=== PATIENT | female | born 2005 | race Caucasian/White ===

== ENCOUNTER 2025-05-17 14:20 | Outpatient (AMB) | payer OTHER, SELFPAY ==
--- NOTE | 2025-05-17 14:28 | MHC.OFFVIS ---
Vital Signs 05/17/25 14:34 Height 5 ft 8 in Weight 155 lb BMI 23.6 BP 107/75 Blood Pressure Location Lt brachial Position Sitting Pulse 88 Intake Visit Reasons: diarrhea abd pain Intake Note: Patient new consult for diarrhea and abdominal pain. Patientndenies any GI issues. Patient started gluten free. Accompanied by: Mother Allergies clindamycin Allergy (Intermediate, Verified 05/17/25 15:05) Abdominal Pain Medication List - Last Reconciled 05/18/25 by Sindy Cobos CNP etonogestrel-ethinyl estradiol 0.12-0.015 mg/24 hr (NuvaRing) 1 vag ring vaginal Q4W sertraline 50 mg PO DAILY HPI HPI diarrhea abd pain: Details: Patient is a 19-year-old female with PMH of anxiety, RASTA. Referred by PCP for further evaluation of blood in stools Patient is accompanied by her mother Pt reports initial onset of diarrhea with blood and worsening abdominal pain in late December while in training in [place], with symptoms lasting intermittently one month. States abdominal pain was continuous with intermittent bouts of bloating and painful episodes. Locates most symptoms to the lower abdomen. Pt initially attributed bleeding to menses, but after several days realized it was rectal in origin and presented to ER in [place]. CT imaging performed at that time was unremarkable, and concern for contaminated water was excluded. Pt was medically discharged and returned home, where symptoms persisted, prompting a second ER visit on 01/22/2025 for abdominal pain and rectal bleeding. Primary care follow-up on 01/24/2025 noted ongoing pain, bloating, and weight loss, which pt attributes to training intensity and dietary changes.. Celiac disease is present in 2nd degree relatives on both sides, prompting pt to trial a gluten-free diet starting the first week of January. Reports significant improvement in abdominal pain, bloating, and bowel regularity (now 1?2 [id number] BMs/day) with strict gluten avoidance, but notes recurrence of diarrhea and abdominal pain with gluten exposure (most notably in early April and after dietary lapses while traveling in January). Bloody diarrhea resolved after return to gluten-free diet and has not recurred since late January. Associated sx included transient rash on feet and back of legs after initial episode, lasting several weeks and unresponsive to antifungal tx, described as likely autoimmune in nature by podiatry. No hx of N/V, constipation, dysphagia, or chest pain. No previous dx of celiac though pt?s family members have required EGD bx for dx due to non-diagnostic labs. Denies personal or family hx of Crohn?s/UC, ca, or prior sedation complications. Most recent labs (12/2024) were WNL for anemia, LFTs, renal function; H. pylori status indeterminate (no verbal result; stool sample may not have processed). Patient denies: fever/chills, n/v, appetite changes, pyrosis, regurgitation,dysphasia. Social hx: -ETOH use 1?2 glasses wine/month. -denies recreational drug use -non-smoker - family hx as below -denies personal hx of CA - denies significant cardiopulmonary history -no prior sedation history. PFSH Medical History (Updated 05/18/25 @ 20:50 by Sindy Cobos CNP) Rash Bloating Blood in stool Surgical History (Updated 05/17/25 @ 14:40 by Miriam Mcdonald) Hx of wisdom tooth extraction Social History Household Members: Family Alcohol intake: never Patient Tobacco Use Status: Never used Tobacco Use of substances other than those prescribed or required for medical reasons: No Review of Systems Const Reports as per HPI ENT Reports as per HPI Card Reports as per HPI Resp Reports as per HPI GI Reports as per HPI Reports as per HPI Physical Exam Vital Signs: Last Vital Signs Pulse 88 05/17/25 14:34 BP 107/75 05/17/25 14:34 BMI result Body Mass Index 23.6 Const General: healthy appearing, no acute distress and well developed Nutritional Appearance: average body habitus Orientation/consciousness: patient oriented x3 HEENT Head: Yes normal to inspection, Yes normocephalic and Yes atraumatic Face and sinus: Yes normal facial exam Eyes General: appearance normal, both eyes and all related structures Neck Neck: Yes normal visual inspection Resp Effort & Inspection: normal respiratory effort, able to speak in complete sentences, no tracheal deviation and symmetric chest movement Cardio Bruits: no abdominal aortic bruits GI Inspection: Yes normal to inspection and No distended Palpation (GI): No Abdominal aortic bruit present, Soft to palpation, not firm, nontender and No hepatosplenomegaly present Auscultation: normal bowel sounds Neuro General: patient oriented x3 Gait exam (Neuro): Normal gait present Psych Appearance: grossly normal Mental Status: mental status grossly normal Speech and movement: Normal speech and movement present Affect: normal affect Attitude: cooperative Thought process: Normal thought process present Thought content: Normal thought content present Insight: Good insight present (Psych) Judgement: Good judgement present (Psych) Assessment & Plan Assessment & Plan (1) Blood in stool: Code(s): K92.1 - Melena Category: Medical Plan: Persistent diarrhea and hematochezia with gluten exposure; sx resolution with gluten-free diet, but blood in stool is atypical for celiac + negative serology prior to initiation of gluten free diet; requires exclusion of alternative inflammatory or neoplastic etiologies. Additional Testing: - Repeat comprehensive stool studies ( fecal calprotectin, H. pylori antigen). - Schedule and complete colonoscopy and EGD (both for histopathologic dx?IBD, celiac; obtain bx as indicated). - Review prior outside stool studies, obtain labs where possible. Medication Management: - No new meds initiated; omeprazole rx provided previously, not taken; continue as indicated for GI protection if upper sx develop. - Continue NuvaRing. Lifestyle Recommendations: - Continue gluten-free diet, as symptoms have remitted on this regimen. May need to consider reintroduction near endoscopy date. - Encourage regular hydration. - Adequate fiber intake for bowel regularity if tolerated. Follow-Up: - Will follow up after endoscopic procedures and stool studies; continue portal communication for results and symptom change. - Reassess once pathology/lab findings return. (2) Rash: Code(s): R21 - Rash and other nonspecific skin eruption Category: Medical Plan: Rash concurrent with GI sx, unresponsive to antifungal tx, presumed autoimmune etiology; possibly dermatitis herpetiformis or other gluten-related/vasculitic skin lesions, typically seen in celiac. Additional Testing: - None indicated at this time; rash has resolved. - Consider bx only if rash recurs. Medication Management: - None indicated. Lifestyle Recommendations: - Continue to avoid gluten. - Monitor for rash recurrence, start photo documentation if reappears. Follow-Up: - Routine, as above. Plan Follow-up after endoscopy or sooner as needed Time: I spent a total of 30 minutes on the date of encounter which includes: Preparing to see the patient (reviewed previous documentation, test results and medical history) Performing a medically appropriate exam and/or evaluation Ordering medications, tests, and procedures Documenting clinical information in the health record Orders: Orders Calprotectin, Fecal 05/17/25 K92.1 - Melena H pylori Ag Stool 05/17/25 K92.1 - Melena, R14.0 - Abdominal distension (gaseous) C Reactive Protein 05/17/25 K92.1 - Melena Referrals GI Procedure Notification K92.1 - Melena, R14.0 - Abdominal distension (gaseous) Coding Level of Care Code New Pt New Pt Level 3 (35709) Patient Type New Diagnoses Blood in stool K92.1 Rash R21
[2025-05-17 14:34] VITALS: BP 107/75; PULSE 88; BMI 23.6
--- OUTSIDE RECORDS SUMMARY | 2025-05-18 02:49 | XMS_ITS | Clinical Summary ---
Author Organization [facility] Address [address] [place] [id number] Phone Care Team Providers Care Health It Specialist Name Role Phone Unavailable Primary Care Provider Unavailabl e Allergies No known active allergies Medications triamcinolone 0.025 % ointmentIndicat ions:Periocular dermatitis Apply to eczema around eye bid up to 5 days. Not use more than 10 days per month 80 g 5 2 Active Additional Information Patient not taking.Reported on 05/05/2022 cyproheptadine 4 MG tabletIndicatio ns:Concussion without loss of consciousness, subsequent encounter Take 1/2 tablet daily around 9 pm as directed til 2022 30 tablet 2 Active Additional Information Patient not taking.Reported on 12/29/2022 AMITRIPTYLINE EX 3 Active Active Problems Problem Noted Date Diagnosed Date Concussion with no loss of consciousness 022 Assessment & Plan (05/30/2022 12:47 PM EST): Concussion Ongoing Symptoms Still symptomatic from concussion after a few days of improvement. Schoolwork and lights at school trigger Note for school, sunglasses Patient Instructions 1/2 days school this week, then full days Sunglasses daily for 7-10 days in school--note Cyproheptadine 2 mg around 9 pm for 30 days For 1 weeks take 2 Aleve (440mg) in AM with food and water Stay well hydrated Good sleep Exercise , 20 ' daily hiking, stationary bike--assuming no significant sx. Hopefully, RTP starting middle next week. [employer] form completed Discussed in detail Discussed Second Impact Syndrome and importance of following mental and physical rest recommendations. Rest, good hydration, good sleep. Discussed importance of honesty reporting if ANY new symptoms develop and to call us as needed/or let net trainer know. Assessment & Plan (05/14/2022 10:33 AM EST): Concussion Ongoing Symptoms Still symptomatic from concussion. [employer] form completed and 1/2 days in school until 05/26---to send me via completed [employer] form via [employer] on 05/26 Possible will start RTP with school net trainer that week--time will tell. Continue 1/2 tablet cyproheptadine in PM to aid sleep and reduce PICKENS Discussed in detail Discussed Second Impact Syndrome and importance of following mental and physical rest recommendations. Rest, good hydration, good sleep. Discussed importance of honesty reporting if ANY new symptoms develop and to call us as needed/or let net trainer know. Assessment & Plan (05/05/2022 2:37 PM EST): Patient Instructions Concussion Ongoing Symptoms Still symptomatic from concussion. [employer]IANA form completed and altered school schedule until recheck in ~1 week. Discussed in detail Discussed Second Impact Syndrome and importance of following mental and physical rest recommendations. Rest, good hydration, good sleep. Discussed importance of honesty reporting if ANY new symptoms develop and to call us as needed/or let net trainer know. Assessment & Plan (04/28/2022 12:44 PM EDT): Concussion Ongoing Symptoms Still symptomatic from concussion. [employer]IA[employer] form completed and no school x 3 days then 1/2 days x 2 --- recheck in 1 week. Discussed in detail Discussed Second Impact Syndrome and importance of following mental and physical rest recommendations. Rest, good hydration, good sleep. Adolescent idiopathic scoliosis of thoracolumbar region 12/17/2021 Overview (12/17/2021): Diagnosed 07/2019. 32 degree curve. Referred to [facility]. No intervention done because she was post-menarche. Assessment & Plan (12/18/2021 8:32 PM EDT): Discharged from [facility]. She never had any intervention. Iron deficiency anemia arabella andrew to inadequate dietary iron intake 11/22/2021 Overview (12/18/2021): Hgb 11.3 on 11/22/2021. Iron rich diet and multivitamin with diet recommended. Plan to recheck HGB at 12/17/2021 visit here: 13.3 Assessment & Plan (12/18/2021 8:23 PM EDT): HGB improved compared to 11/22/2021 and normal today. Continue iron rich diet. Anxiety 10/09/2021 Overview (12/18/2021): Diagnosed 10/09/2021. GAD7=12. Comorbid dysthymia. She is open for therapy and was referred to [facility]. We discussed acute and preventative treatment with medication. She declines SSRI use at this point. She agrees to Hydroxyzine use acutely, in a limited fashion periods in increased anxiety and for assistance with sleep. Labs checked: CMP/TFT's normal. CBC with mild anemia. Seen by [facility] twice. She discontinued her OCP and symptoms improved somewhat. Well visit 12/17/2021: GAD7=3, low and stable. No indication for medication at this time. Assessment & Plan (12/29/2022 8:48 AM EDT): Saw MATTHEW in the past, now doing well Assessment & Plan (12/18/2021 8:29 PM EDT): Well visit 12/17/2021: GAD7=3, low and stable. No indication for medication at this time. S/P BHIP. On wait list for community counselor. Assessment & Plan (10/14/2021 12:13 PM EDT): GAD7=12. Comorbid dysthymia. She is open for therapy and was referred to [facility]. We discussed acute and preventative treatment with medication. She declines SSRI use at this point. She agrees to Hydroxyzine use acutely, in a limited fashion periods in increased anxiety and for assistance with sleep. Labs will be checked. Dysthymia 10/09/2021 Overview (12/18/2021): Diagnosed 10/09/2021. PHQ9=15, no SI. Comorbid Anxiety. She is open for therapy and was referred to [facility]. We discussed acute and preventative treatment with medication. She declines SSRI use at this point. CMP/TFT's normal. CBC with mild anemia. Seen twice by [facility]. She discontinued her OCP and symptoms improved somewhat. Well visit 12/17/2021: PHQ9=3, improved from 15, no SI. Assessment & Plan (12/18/2021 8:30 PM EDT): S/P counseling with [facility]. PHQ9=3, no SI, improved. No medication is indicated at this time. On wait list for community counselor. Assessment & Plan (10/14/2021 12:15 PM EDT): PHQ9=15, no SI. Comorbid Anxiety. She is open for therapy and was referred to [facility]. We discussed acute and preventative treatment with medication. She declines SSRI use at this point. Labs will be checked. Resolved Problems Problem Noted Date Diagnosed Date Resolved Date Medial tibial stress syndrome 01/03/2022 01/03/2022 Overview (01/03/2022): Seen by [facility], all goals met, discharged 12/05/2021. Surveillance for contr ol, oral contraceptives 09/24/2021 12/18/2021 Overview (12/17/2021): OCP started 04/2020 for irregularity and menorrhagia. Patient stopped this around 08/2021 due to increase in anxiety and acne. These improved upon cessation. Periods are regular. Periocular dermatitis 08/20/20212021 Overview (08/20/2021): Suspect periocular eczema right upper eyelid Hx of flexural eczema doing well with moisturizer and higher strength Triamcinolone Assessment & Plan (08/20/2021 2:54 PM EST): Suspect periocular eczema right upper eyelid Hx of flexural eczema doing well with moisturizer and higher strength Triamcinolone I discussed options of brief courses - limit to 5 days at a time, 10 days per month of low strength steroid vs daily elidel. Sofia would like to start with low- strength steroid- Triamcinolone 0.25% twice per day up to 5 days Also recommend using Aquaphor or Vaseline around eyes If not well controlled would recommend switch to Elidel or Protopic More information in AVS Immunizations Immunization Administration Dates Next Due DTaP 10/01/2009, 6,02/03/2005,12/02,2004 HPV Vaccine 9 Valent 03/11/2017,10/18/2015 Hep A, ped/adol 04/14/2011,10/01/2009 Hep B, ped/adol 02/03/2005, 5,2004,07/21 HiB 10/21/2005, 5,2004,09/30 IPV 10/01/2009, 6,02/03/2005,12/02,2004 Influenza, injectable, quadr ivalent, preservative free 05/14/2022,05/14/2020,05/09/2019,04/29,03/11/2017 Influenza, intranasal, quadrivalent 06/06/2013,1 ,04/14/2011 MMR 09/19/2008,07/29/2005 Meningococcal B Trumenba 06/19/2022,12/17/2021 Meningococcal Conj (Menactra) MCV4P 12/17/2021,0 10/18/2015 Pneumococcal Conjugate 10/21/2005,2004,2004,09/30 Pneumococcal Conjugate 13-Valent 006,02/03/2005,2004,09/30 Tdap 10/18/2015 Varicella 09/19/2008,07/29/2005 Social History Tobacco Use Types Packs/Day Years Used Date Smoking Tobacco: Never Assessed Hunger/Food Answer Date Recorded In the last 12 months, did y ou or your family ever eat less than you felt you should because there wasn't enough money for food? No 12/29/2022 Stable Housing Answer Date Recorded Are you worried that in the next 2 months you may not have stable housing? No 12/29/2022 Transportation Concerns Answer Date Rec orded In the last 12 months, have you or your family ever had to go without healthcare because you didn't have a way to get there? No 12/29/2022 Hazards in Home Answer Date Recorded Think about the place you li ve. Do you have problems with any of the following? Pests (mice or roaches), mold, no/not working smoke detectors, water leaks, no window guards. No 2022 Financing Utilities Answer Date Recorde d In the last 12 months, has t he electric, gas, oil, or water company threatened to shut off your services in your home? No 12/29/2022 Safety at Home Answer Date Recorded Are you or your family worried about feeling saf e in your home? No 12/29/2022 Outside Support Answer Date Recorded Do you feel that you need mo re support from other people or programs to help you care for yourself or your family? No 12/29/2022 Understanding Health Concerns Answer Da te Recorded Do you need help understandi ng your or your child's healthcare needs (diagnosis, medications, plan, etc.)? No 12/29/2022 Financing Health Concerns Answer Date R ecorded In the last 12 months, was t here a time when your child needed to see a doctor or get medications or supplies but could not because of cost? No 12/29/2022 Missing School or Work Answer Date Nilay rded Did you or your child miss s chool or work because of a health problem that could have been avoided? No 12/29/2022 Comments No Sex and Gender Information Value Date Recorded Sex Assigned at Not on file Legal Sex Female 11:24 AM EST Gender Identity Female 09/26/2021 2:21 PM EDT Sexual Orientation Not on file Last Filed Vital Signs Vital Sign Reading Time Taken Comments Blood Pressure 110/68 12/29/2022 8:26 AM EDT Pulse 80 12/29/2022 8:26 AM EDT Temperature 36.5 C (97.7 F) 12/29/2022 8:26 AM EDT Respiratory Rate 18 12/29/2022 8:26 AM EDT Oxygen Saturation 98% 12/29/2022 8:26 AM EDT Inhaled Oxygen Concentration - - Weight 69.9 kg (154 lb 2 oz) 12/29/2022 8:26 AM EDT Height 172.2 cm (5' 7.8 ) 12/29/2022 8:26 AM EDT Body Mass Index 23.58 12/29/2022 8:26 AM EDT Plan of Treatment Health Maintenance Due Date Last Done Comments Chlamydia and Gonorrhea Screening 06/29/2024 022 Influenza Vaccines (#1) 2025 05/19/20 24, 06/15/2023, 05/14/2022, Additional history exists COVID-19 Vaccine (2024- 6 season) 2025 08/22/2021, 12/05/2020, 11/14/2020 DTaP,Tdap,and Td Vaccines (7 - Td or Tdap) 10/17/2025 10/18/2015, 10/01/2009, 10/21/2005, Additional history exists Hepatitis B Vaccines Completed 02/03/2005, 2004, 2004, Additional history exists HIB Vaccines Completed 10/21/2005, 01/2005, 2004, Additional history exists Pneumococcal Vaccine Completed 10/21/2005, 10/21/2005, 02/03/2005, Additional history exists MMR Vaccines Completed 09/19/2008, 07/29/2005 Varicella Vaccines Completed 09/19/2008, 07/29/2005 IPV Vaccines Completed 10/01/2009, 09/28, 02/03/2005, Additional history exists Hepatitis A Vaccines Completed 04/14/2011, 10/02/19 10 HPV Vaccines Completed 03/11/2017, 10/18/2015 Meningococcal Vaccine Completed 12/17/2021, 016 Men B Vaccine Completed 06/19/2022, 12/17/2021 Procedures * Due to [place] state law, this organization might not be sharing sensitive test results. Procedure Name Priority Date/Time Associated Diagnosis Comments CHLAMYDIA AND GONORRHEA, AMPLIFIED Routine 12/17/2021 12:48 PM EDT Routine screening for STI (sexually transmitted infection) from Last 3 Months or Most Recently Relevant to Health Maintenance Results * Due to [place] state law, this organization might not be sharing sensitive test results. * Chlamydia and Gonorrhoea, Amplified (12/17/2021 12:48 PM EDT) Chlamydia Trachomatis, DNA Probe NEGATIVE (NEG) [facility] Comment: No Chlamydia Trachomatis RNA detected in this patient's sample (REFERENCE RANGE/NORMAL VALUE: NOT DETECTED) Note: This test uses food and drug inspector- mediated amplification method to detect rRNA from C. Trachomatis URINE GC AMP PROBE NEGATIVE (NEG) [facility] Comment: No Neisseria Gonorrhoeae RNA detected in this patient's sample (REFERENCE RANGE/NORMAL VALUE: NOT DETECTED) NOTE: This test uses food and drug inspector-mediated amplification method to detect rRNA from N.Gonorrhoeae. A negative result does not preclude infection. In the case of a negative urine result, testing of an endocervical(female) or urethral (male) specimen is recommended if there is high clinical suspicion of infection. Due to very high sensitivity of Nucleic Acid Amplification Test, false positive results may occur. Therefore, specimen handling is extremely important. In patients in whom the disease is unlikely, additional sample for testing should be considered after an initial positive result. The performance characteristics of this test have not been evaluated in children. The Aptima Combo2 assay is not intended for the evaluation of suspected sexual abuse or for other medico-legal indications. The ordering provider should assess if the patient had consensual sex without risk of sexual abuse. Consult the [facility] if needed. Contact phone number . Therapeutic failure or success cannot be determined with the Aptima Combo2 assay since nucleic acid may persist following appropriate antimicrobial therapy. The Centers for Disease Control and Prevention (CDC) recommends confirmatory retesting using culture or a different nucleic acid amplification test when positive results occur, if indicated. Testing performed or reported by [facility], a Service of [facility], [address] [place] [address] Pawel Mathis MD, Quality Assurance Monitor Final [facility]# [id number] Urine (Urine) 12/17/2021 12: 48 PM EDT 12/17/2021 10:23 PM EDT Joselyn Fitzgerald MD LAB MICROBIOLOGY - GENERAL O RDERABLES Final Result [facility] from Last 3 Months or Most Recently Relevant to Health Maintenance Insurance [employer]
--- OUTSIDE RECORDS SUMMARY | 2025-05-18 02:49 | XMS_ITS | Encounter Summary ---
Author Organization [facility] Address [address] [place] [phone] Phone Care Team Providers Care Miniature Model Maker Name Role Phone Joselyn Fitzgerald MD Primary Care Provider [phone] Reason for Visit * Reason Comments Med Change Request Encounter Details Date Type Department Care Team (Late st Contact Info) Description 06/10/2022 Refill [facility] - [address] [place] [address] Arik Palomino MD [address] [place] [id number] Concussion without loss of consciousness, subsequent encounter Social History Tobacco Use Types Packs/Day Years Used Date Smoking Tobacco: Never Assessed Comments No Sex and Gender Information Value Date Recorded Sex Assigned at Not on file Legal Sex Female 11:24 AM EST Gender Identity Female 09/26/2021 2:21 PM EDT Sexual Orientation Not on file documented as of this encounter Miscellaneous Notes * Telephone Encounter - Leatha Ennis LPN - 06/11/2022 1:56 PM EST Mom called back and confirmed patient is no longer taking this medication. * Telephone Encounter - Leatha Ennis LPN - 06/11/2022 1:36 PM EST Call to preferred number no answer left brief message to return the call. Need to know if still taking the cyproheptadine. See GN note below * Telephone Encounter - Arik Palomino MD - 06/11/2022 8:23 AM EST Please call, I think she is off this medication documented in this encounter Plan of Treatment Not on file documented as of this encounter Visit Diagnoses Diagnosis Concussion without loss of consciousness, subsequent encounter documented in this encounter Care Teams Miniature Model Maker Relationship Specialty Start Date End Date Joselyn Fitzgerald MD [address] [place] [id number] PCP - General Pediatrics 07/08/21 11/20/22 documented as of this encounter
--- OUTSIDE RECORDS SUMMARY | 2025-05-18 02:49 | XMS_ITS | Encounter Summary ---
Author Organization [facility] Address [address] [place] [phone] Phone Care Team Providers Care Nursing Informatics Analyst Name Role Phone Joselyn Fitzgerald MD Primary Care Provider Reason for Visit * Reason Comments Med Refill Encounter Details Date Type Department Care Team (Late st Contact Info) Description 05/27/2022 Refill [facility] - [address] [address] Arik Palomino MD [address] [place] [address] Concussion without loss of consciousness, subsequent encounter Social History Tobacco Use Types Packs/Day Years Used Date Smoking Tobacco: Never Assessed Comments No Sex and Gender Information Value Date Recorded Sex Assigned at Not on file Legal Sex Female 11:24 AM EST Gender Identity Female 09/26/2021 2:21 PM EDT Sexual Orientation Not on file documented as of this encounter Plan of Treatment Not on file documented as of this encounter Visit Diagnoses Diagnosis Concussion without loss of consciousness, subsequent encounter documented in this encounter Care Teams Nursing Informatics Analyst Relationship Specialty Start Date End Date Joselyn Fitzgerald MD [address] [place] [address] PCP - General Pediatrics 07/08/21 11/20/22 documented as of this encounter
--- OUTSIDE RECORDS SUMMARY | 2025-05-18 02:49 | XMS_ITS | Clinical Summary ---
Author Organization [facility] Address [address] [place] [address] Care Team Providers Care Program Schedule Clerk Name Role Phone Melchor Abdi Unavailable Melchor Abdi Primary Care Provider [phone] Allergies Active Allergy Reactions Criticality Noted Date Comments Clindamycin 02/18/2025 Other Reaction(s): GI upset, CP Medications levonorgestreL (MIRENA) intrauterine device 1 Intra Uterine Device by intrauterine route Every 8 Years. Active Active Problems Problem Noted Date Diagnosed Date Concussion 02/18/2025 Eczema 02/18/2025 Scoliosis of thoracolumbar spine 02/18/2025 Sore throat 02/18/2025 Traumatic closed displaced G aleazzi's fracture of right radius 02/18/2025 Allergic rhinitis 01/24/2025 Concussion with no loss of consciousness 022 Adolescent idiopathic scoliosis of thoracolumbar region 12/17/2021 Overview (02/18/2025): Diagnosed 07/2019. 32 degree curve. Referred to [facility]. No intervention done because she was post-menarche. Iron deficiency anemia arabella albarrany to inadequate dietary iron intake 11/22/2021 Overview (02/18/2025): Hgb 11.3 on 11/22/2021. Iron rich diet and multivitamin with diet recommended. Plan to recheck HGB at 12/17/2021 visit here: 13.3 Anxiety 10/09/2021 Overview (02/18/2025): Diagnosed 10/09/2021. GAD7=12. Comorbid dysthymia. She is open for therapy and was referred to [facility]. We discussed acute and preventative treatment with medication. She declines SSRI use at this point. She agrees to Hydroxyzine use acutely, in a limited fashion periods in increased anxiety and for assistance with sleep. Labs checked: CMP/TFT's normal. CBC with mild anemia. Seen by [facility] twice. She discontinued her OCP and symptoms improved somewhat. Well visit 12/17/2021: GAD7=3, low and stable. No indication for medication at this time. Dysthymia 10/09/2021 Overview (02/18/2025): Diagnosed 10/09/2021. PHQ9=15, no SI. Comorbid Anxiety. She is open for therapy and was referred to [facility]. We discussed acute and preventative treatment with medication. She declines SSRI use at this point. CMP/TFT's normal. CBC with mild anemia. Seen twice by [facility]. She discontinued her OCP and symptoms improved somewhat. Well visit 12/17/2021: PHQ9=3, improved from 15, no SI. Encounters Date Type Department Care Team Description 02/22/2025 Results Follow-Up [facility] [address] [address] Shantell Dooley Vaginal Pathogen Panel by Equipment Detailer-Mediated Amplification (TMA) Symptomatic 02/18/2025 9:15 AM EDT Office Visit [facility] [address] [address] Bing Atwood MD Martin, Keely M Vaginal discharge (Primary Dx) from Last 3 Months Social History Tobacco Use Types Packs/Day Years Used Date Smoking Tobacco: Never Smokeless Tobacco: Never Tobacco Cessation:Counseling Given: Not Answered Alcohol Use Standard Drinks/Week Comments Never 0 (1 standard drink = 0.6 oz pur e alcohol) Comments No Sex and Gender Information Value Date Recorded Sex Assigned at Not on file Legal Sex Female 7:12 AM EDT Gender Identity Not on file Sexual Orientation Not on file Last Filed Vital Signs Vital Sign Reading Time Taken Comments Blood Pressure 110/72 02/18/2025 9:19 AM EDT Pulse 94 02/18/2025 9:19 AM EDT Temperature 36.8 C (98.2 F) 02/18/2025 9:19 AM EDT Respiratory Rate 20 02/18/2025 9:19 AM EDT Oxygen Saturation 97% 02/18/2025 9:19 AM EDT Inhaled Oxygen Concentration - - Weight 70.3 kg (155 lb) 02/18/2025 9:19 AM EDT Height 172.7 cm (5' 8 ) 02/18/2025 9:19 AM EDT Body Mass Index 23.57 02/18/2025 9:19 AM EDT Plan of Treatment Health Maintenance Due Date Last Done Comments HIV Screening 2004 Hepatitis C Screening 2022 COVID-19 Vaccine ( season) 2025 08/22/2021, 12/05/2020, 11/14/2020 Influenza Vaccine (#1) 2025 , 06/15/2023, 05/14/2022, Additional history exists DTaP,Tdap,and Td Vaccines (7 - Td or Tdap) 10/17/2025 10/18/2015, 10/01/2009, 10/21/2005, Additional history exists Chlamydia Screening 10/20/2025 10/20/2024 Zoster Vaccines (1 of 2) 2054 Pneumococcal Vaccine: At-Risk and Pediatric Patients (0 to 49 Years) Aged Out 10/21/2005, 10/21/2005, 02/03/2005, Additional history exists No longer eligible based on patient's age to complete this topic MMR Vaccines Completed 09/19/2008, 07/29/2005 Hepatitis A Vaccines Completed 04/14/2011, 10/02/19 10 HPV Vaccines Completed 03/11/2017, 10/18/2015 Meningococcal Vaccine Completed 12/17/2021, 016 Hepatitis B Vaccines Completed 12/02/2024, 02/03/2005, 2004, Additional history exists Procedures Procedure Name Priority Date/Time Associated Diagnosis Comments VAGINAL PATHOGEN PANEL BY TMA Routine 02/18/2025 9:24 AM EDT Vaginal discharge CHLAMYDIA TRACHOMATIS NAAT Routine 10/20/2024 9:13 AM EDT Yeast infection from Last 3 Months or Most Recently Relevant to Health Maintenance Results * (ABNORMAL) Vaginal Pathogen Panel by Equipment Detailer-Mediated Amplification (TMA) Symptomatic (02/18/2025 9:24 AM EDT) Bacterial Vaginosis, RNA Positive(A) Negative 02/20/2025 1:10 PM EDT [facility] Samantha glabrata, RNA Negative Negative 02/20/2025 1:10 PM EDT [facility] Samantha species, RNA Positive(A) Negative 02/20/2025 1:10 PM EDT [facility] Trichomonas vaginalis RNA Negative Negative 02/20/2025 1:10 PM EDT [facility] Swab Vaginal structure / Unknown Non-blood Collection / Unknown 02/18/2025 9:24 AM EDT 02/18/2025 9:24 AM EDT Narrative [facility] - 02/20/2025 1:10 PM EDT This test detects Trichomonas vaginalis, Samantha glabrata, and other Samantha species (C. albicans, C. parapsilosis, C. dubliniensis, and C. tropicalis). The assay does not differentiate among organisms in the Samantha species group. For Bacterial vaginosis, a single qualitative result is determined based on relative amounts of the following target organisms: Lactobacillus (L. gasseri, L. crispatus, and L. jensenii), Gardnerella vaginalis, and Atopobium vaginae. This assay does not report individual organisms. Results should be interpreted in conjunction with other clinical data. This test has not been validated for use with specimens collected by patients at home. This test is intended for medical purposes only and is not valid for the evaluation of suspected sexual abuse or for other forensic purposes. A negative result does not preclude a possible infection. Shantell Dooley LAB MICRO - GENERAL ORDERABLES N O STAT Final Result [facility] [address] [place] [address], * Chlamydia trachomatis NAAT (10/20/2024 9:13 AM EDT) Chlamydia trachomatis ribosomal RNA Negative Negative 10/21/2024 1:11 PM EDT [facility] Comment:Specimen is presumpt ively negative for Chlamydia trachomatis ribosomal RNA (rRNA). A negative result does not preclude the presence of a Chlamydia trachomatis infection because results are dependent on adequate specimen collection, absence of inhibitors, and sufficient rRNA to be detected. Swab Vaginal structure / Unknown Non-blood Collection / Unknown 10/20/2024 9:13 AM EDT 10/20/2024 2:30 PM EDT Narrative [facility] - 10/21/2024 1:11 PM EDT The Aptima Combo 2 Assay is a second-generation nucleic acid amplification test (NAAT) that utilizes target capture, Equipment Detailer-Mediated Amplification (TMA ), and Dual Kinetic Assay (DKA) technologies for the qualitative detection and differentiation of ribosomal RNA (rRNA) from Chlamydia trachomatis (CT) and / or Neisseria gonorrhoeae (GC). Antoine Ferrell PA-C LAB MICROBIOLOGY - [facility] ORDERABLES Final Result [facility] [address] [place] [address], from Last 3 Months or Most Recently Relevant to Health [place] [id number] [facility] P[facility] Care Teams Program Schedule Clerk Relationship Specialty Start Date End Date Melchor Abdi [address] [place] [address] PCP - Insurance Payer PCP 10/12/24 Melchor Abdi [address] [place] [address] PCP - General Internal Medicine 10/12/24
== END 2025-05-17 15:10 | disposition home or self-care (01) ==
LOC: HO.HGI 14:20
PROVIDERS: PCP Internal Medicine; Visit Provider Nurse Practitioner Family
DX: K92.1 Melena (principal); R21 Rash and other nonspecific skin eruption
CPT/HCPCS: 99203